=== PATIENT | female | born 1975 | race African-American/Black ===

== ENCOUNTER 2022-11-23 11:22 | Emergency (ER) | payer OTHER ==
[~2022-11-23] VITALS: Ht 170.2 cm; Wt 98.0 kg
[2022-11-23 11:36] VITALS: BP 159/83; PULSE 86; RESP 14; O2SAT 100
[2022-11-23] MEDS ORDERED: DOXY150T5 MT (14:41)
[2022-11-23] MEDS ORDERED: ACETAMINOPHEN 650MG/20.3ML UDC PO ONE (14:45)
[2022-11-23 15:00] VITALS: TEMP 98.5
[2022-11-23] MEDS ORDERED: ACETAMINOPHEN 325MG TABLET PO ONE (15:00)
== END 2022-11-23 15:10 | disposition home or self-care (01) ==
LOC: ER 11:33
DX: L02.01 Cutaneous abscess of face (principal)
CPT/HCPCS: 99283; Z7610